=== PATIENT | female | born 1960 | race Native Hawaiian/Other Pacific Islander ===

== ENCOUNTER 2016-11-01 15:57 | Outpatient (CLI) | payer OTHER | END 2016-11-01 16:57 | disposition home or self-care (01) | LOC: MAMMO 15:57 | DX: Z12.31 Encounter for screening mammogram for malignant neoplasm of breast (principal) | CPT/HCPCS: G0202-TC ==

== ENCOUNTER 2018-01-25 16:37 | Emergency (ER) | payer OTHER ==
[~2018-01-25] VITALS: Ht 160 cm; Wt 65.8 kg
[2018-01-25 17:41] LABS: PLATELET COUNT 209 K/uL (152-353)
[2018-01-25 17:46] LABS: POTASSIUM 3.4 mmol/L (3.6-5.2)
[2018-01-25 19:27] VITALS: BP 145/85; TEMP 98.5
== END 2018-01-25 19:32 | disposition home or self-care (01) ==
LOC: ED 16:37
DX: R74.0 Nonspecific elevation of levels of transaminase and lactic acid dehydrogenase [LDH] (principal); R31.9 Hematuria, unspecified; Z87.442 Personal history of urinary calculi
CPT/HCPCS: 36415; 80053; 81000; 85027; 87081; 87804; 87880; 99283

== ENCOUNTER 2021-01-20 07:53 | Outpatient (CLI) | payer OTHER | END 2021-01-20 21:44 | disposition home or self-care (01) | LOC: RAD 07:53 | PROVIDERS: ATTEND Physician Assistant | DX: M79.643 Pain in unspecified hand (principal); M79.89 Other specified soft tissue disorders; J32.9 Chronic sinusitis, unspecified ==

== ENCOUNTER 2021-09-07 12:29 | Outpatient (CLI) | payer OTHER | END 2021-09-07 20:07 | disposition home or self-care (01) | LOC: RAD 12:29 | PROVIDERS: ATTEND Nurse Practitioner Family | DX: M54.50 Low back pain, unspecified (principal) ==

== ENCOUNTER 2021-09-28 07:31 | Outpatient (CLI) | payer OTHER | END 2021-09-28 18:55 | disposition home or self-care (01) | LOC: US 07:31 | PROVIDERS: ATTEND Nurse Practitioner Family | DX: R31.29 Other microscopic hematuria (principal) ==

== ENCOUNTER 2023-06-05 13:28 | Emergency (ER) | payer OTHER ==
[~2023-06-05] VITALS: Ht 160 cm; Wt 59.9 kg
[2023-06-05 13:28] VITALS: BP 183/85; TEMP 97.8
[2023-06-05] MEDS ORDERED: SERT50TA PO (13:41)
[2023-06-05] MEDS ORDERED: ASPIRIN LOW81 MG PO (13:41)
== END 2023-06-05 16:41 | disposition home or self-care (01) ==
LOC: ED 13:28
PROC: 2W3DX1Z Immobilization of Left Lower Arm using Splint (ICD-10-PCS; principal; 2023-06-05)
DX: S62.101A Fracture of unspecified carpal bone, right wrist, initial encounter for closed fracture (principal); S32.019A Unspecified fracture of first lumbar vertebra, initial encounter for closed fracture; W01.0XXA Fall on same level from slipping, tripping and stumbling without subsequent striking against object, initial encounter
CPT/HCPCS: 99283